=== PATIENT | male | born 1965 | race Hispanic/Latino ===

== ENCOUNTER 2023-01-05 15:27 | Inpatient (IN) | payer OTHER ==
[~2023-01-05] VITALS: Ht 167.6 cm; Wt 76.2 kg
[2023-01-05] MEDS ORDERED: SODIUM CHLORIDE FLUSH 10 ML SYR IV PRN (15:45)
[2023-01-05] MEDS ORDERED: SODIUM CHLORIDE 0.9% 250ML 1,000 ML IV ONE (15:45)
[2023-01-05 16:06] LABS: BASOPHILS % 0.2 % (0.0-1.0); EOSINOPHILS % 0.9 % (0.0-6.0); HEMATOCRIT 43.1 % (38.2-49.6); HEMOGLOBIN 15.1 g/dL (14.0-18.0); LYMPHOCYTES # (AUTO) 1.5 (1.0-3.2); LYMPHOCYTES % 33.6 % (18.0-39.1); MEAN CORPUSCULAR HEMOGLOBIN 31.2 pg (28-32); MONOCYTES # (AUTO) 0.4 (0.2-0.8); MONOCYTES % 9.3 % (4.4-11.3); NEUTROPHILS # (AUTO) 2.5 (2.1-6.9); NEUTROPHILS % 55.8 % (38.7-80.0); PLATELET COUNT 154 x10e3/uL (140-360); RED BLOOD COUNT 4.84 x10e6/uL (4.3-5.7); RED CELL DISTRIBUTION WIDTH 12.4 % (11.7-14.4)
[2023-01-05 16:25] LABS: ALBUMIN 4.2 g/dL (3.5-5.0); ALBUMIN/GLOBULIN RATIO 1.6 (0.8-2.0); CALCIUM 8.7 mg/dL (8.4-10.2); CREATININE, SERUM 1.21 mg/dL (0.72-1.25)
[2023-01-05] MEDS ORDERED: ONDANSETRON HCL INJ 2MG/ML 2ML 2 MG/ML VIAL IV PRN (18:30)
[2023-01-05] MEDS ORDERED: ASPIRIN 325 MG TAB PO ONE (18:30)
[2023-01-05] MEDS ORDERED: SODIUM CHLORIDE FLUSH 10 ML SYR INJ PRN (18:30)
[2023-01-05 18:39] LABS: CREATINE KINASE 100 IU/L (30-200)
[2023-01-05 20:40] VITALS: BP 127/78; PULSE 52; RESP 17; TEMP 97.3; O2SAT 100
[2023-01-05 22:10] VITALS: BP 127/78; PULSE 52; RESP 17; TEMP 97.3; O2SAT 100
[2023-01-05] MEDS ORDERED: ASPIRIN EC81 MG PO (22:13)
[2023-01-05] MEDS ORDERED: CLOPIDOGREL75 MG PO (22:13)
[2023-01-05] MEDS ORDERED: LISINOPRIL2.5 MG PO (22:13)
[2023-01-05] MEDS ORDERED: ATORVASTATIN CA20 MG PO (22:13)
[2023-01-06] VITALS (10 sets, daily range): BP systolic 101–135; BP diastolic 63–86; PULSE 54–84; RESP 16–18; TEMP 97.3–99.1; O2SAT 96–100
[2023-01-06 06:21] LABS: BASOPHILS % 0.5 % (0.0-1.0); EOSINOPHILS # (AUTO) 0.1 (0.0-0.4); EOSINOPHILS % 3.1 % (0.0-6.0); HEMATOCRIT 41.2 % (38.2-49.6); HEMOGLOBIN 14.6 g/dL (14.0-18.0); LYMPHOCYTES # (AUTO) 1.4 (1.0-3.2); LYMPHOCYTES % 32.9 % (18.0-39.1); MEAN CORPUSCULAR HEMOGLOBIN 31.9 pg (28-32); MEAN CORPUSCULAR HGB CONC 35.4 g/dL (31-35); MEAN CORPUSCULAR VOLUME 90.2 fL (81-99); MONOCYTES # (AUTO) 0.4 (0.2-0.8); MONOCYTES % 9.2 % (4.4-11.3); NEUTROPHILS # (AUTO) 2.3 (2.1-6.9); NEUTROPHILS % 54.3 % (38.7-80.0); PLATELET COUNT 141 x10e3/uL (140-360); RED BLOOD COUNT 4.57 x10e6/uL (4.3-5.7); RED CELL DISTRIBUTION WIDTH 12.5 % (11.7-14.4)
[2023-01-06 06:37] LABS: ANION GAP 11.2 mmol/L (8-16); CALCIUM 8.5 mg/dL (8.4-10.2); CREATININE, SERUM 1.01 mg/dL (0.72-1.25); POTASSIUM 4.2 mmol/L (3.5-5.1)
[2023-01-06 07:33] LABS: CREATINE KINASE MB 0.6 ng/mL (0-5.0)
[2023-01-06] MEDS ORDERED: ASPIRIN 325 MG TAB EC PO SCH (09:00)
[2023-01-06] MEDS ORDERED: PNEUMOCOCCAL VACCINE POLYVALENT 23 MCG/0.5 ML VIAL IM SCH (10:00)
[2023-01-06] MEDS: ASPIRIN 81 MG CHEW TAB PO SCH (12:00)
[2023-01-06] MEDS: CLOPIDOGREL BISULFATE 75 MG TAB PO SCH (12:47)
[2023-01-06] MEDS: METOPROLOL SUCCINATE 25 MG TAB XL PO SCH (12:49)
[2023-01-06] MEDS ORDERED: ACETAMINOPHEN 325 MG TAB PO PRN (13:00)
[2023-01-06 14:56] LABS: CREATINE KINASE MB 0.6 ng/mL (0-5.0)
[2023-01-06 17:41] LABS: AMPHETAMINES SCREEN,URINE NEGATIVE (NEGATIVE); BENZODIAZEPINES SCREEN,URINE NEGATIVE (NEGATIVE); PHENCYCLIDINE SCREEN,URINE NEGATIVE (NEGATIVE)
[2023-01-06] MEDS: ENOXAPARIN INJ 80 MG/0.8 ML SYR SC SCH (21:08)
[2023-01-06] MEDS: ATORVASTATIN 40 MG TAB PO SCH (21:08)
[2023-01-07] VITALS (7 sets, daily range): BP systolic 101–127; BP diastolic 57–89; PULSE 62–77; RESP 16–18; TEMP 97.2–98.6; O2SAT 97–100
[2023-01-07 05:22] LABS: BASOPHILS % 0.4 % (0.0-1.0); EOSINOPHILS # (AUTO) 0.2 (0.0-0.4); EOSINOPHILS % 3.5 % (0.0-6.0); HEMATOCRIT 43.1 % (38.2-49.6); LYMPHOCYTES # (AUTO) 1.9 (1.0-3.2); LYMPHOCYTES % 41.6 % (18.0-39.1); MEAN CORPUSCULAR HEMOGLOBIN 31.4 pg (28-32); MEAN CORPUSCULAR HGB CONC 34.8 g/dL (31-35); MEAN CORPUSCULAR VOLUME 90.2 fL (81-99); MONOCYTES # (AUTO) 0.4 (0.2-0.8); MONOCYTES % 9.7 % (4.4-11.3); NEUTROPHILS % 44.6 % (38.7-80.0); PLATELET COUNT 148 x10e3/uL (140-360); RED BLOOD COUNT 4.78 x10e6/uL (4.3-5.7); RED CELL DISTRIBUTION WIDTH 12.5 % (11.7-14.4)
[2023-01-07 05:45] LABS: ALBUMIN 3.6 g/dL (3.5-5.0); ALBUMIN/GLOBULIN RATIO 1.4 (0.8-2.0); ANION GAP 11.1 mmol/L (8-16); CALCIUM 8.4 mg/dL (8.4-10.2); CHOL/HDL RATIO 3.4 (3.9-4.7); CREATININE, SERUM 1.21 mg/dL (0.72-1.25); POTASSIUM 4.1 mmol/L (3.5-5.1)
[2023-01-07 06:11] LABS: THYROID STIMULATING HORMONE 1.442 uIU/mL (0.350-4.940)
[2023-01-07] MEDS: METOPROLOL SUCCINATE 25 MG TAB XL PO SCH (08:36)
[2023-01-07] MEDS: ASPIRIN 81 MG CHEW TAB PO SCH (08:36)
[2023-01-07] MEDS: ENOXAPARIN INJ 80 MG/0.8 ML SYR SC SCH ×2 (08:36→20:43)
[2023-01-07] MEDS: CLOPIDOGREL BISULFATE 75 MG TAB PO SCH (08:36)
[2023-01-07] MEDS: ATORVASTATIN 40 MG TAB PO SCH (20:40)
[2023-01-08] VITALS (17 sets, daily range): BP systolic 99–137; BP diastolic 60–84; PULSE 58–76; RESP 16–19; TEMP 97.5–99.3; O2SAT 96–100
[2023-01-08 04:53] LABS: BASOPHILS % 0.6 % (0.0-1.0); EOSINOPHILS # (AUTO) 0.2 (0.0-0.4); EOSINOPHILS % 3.4 % (0.0-6.0); HEMATOCRIT 42.1 % (38.2-49.6); LYMPHOCYTES % 36.5 % (18.0-39.1); MEAN CORPUSCULAR HGB CONC 35.6 g/dL (31-35); MEAN CORPUSCULAR VOLUME 89.8 fL (81-99); MONOCYTES # (AUTO) 0.4 (0.2-0.8); MONOCYTES % 8.2 % (4.4-11.3); NEUTROPHILS # (AUTO) 2.7 (2.1-6.9); NEUTROPHILS % 51.1 % (38.7-80.0); PLATELET COUNT 151 x10e3/uL (140-360); RED BLOOD COUNT 4.69 x10e6/uL (4.3-5.7); RED CELL DISTRIBUTION WIDTH 12.4 % (11.7-14.4)
[2023-01-08 05:19] LABS: ANION GAP 10.1 mmol/L (8-16); CALCIUM 8.4 mg/dL (8.4-10.2); CREATININE, SERUM 1.11 mg/dL (0.72-1.25); POTASSIUM 4.1 mmol/L (3.5-5.1)
[2023-01-08] MEDS: ASPIRIN 81 MG CHEW TAB PO SCH (09:00)
[2023-01-08] MEDS: CLOPIDOGREL BISULFATE 75 MG TAB PO SCH (09:00)
[2023-01-08] MEDS: ENOXAPARIN INJ 80 MG/0.8 ML SYR SC SCH (09:00)
[2023-01-08] MEDS: METOPROLOL SUCCINATE 25 MG TAB XL PO SCH (09:00)
[2023-01-08] MEDS ORDERED: SODIUM CHLORIDE 0.9% 1000ML 1,000 ML IV SCH (11:30)
[2023-01-08] MEDS ORDERED: HEPARIN SOD (PORCINE) 1000 UNIT/ML 30ML ONE (12:05)
[2023-01-08] MEDS ORDERED: LIDOCAINE HCL 2% LOCAL 20 ML VIAL ONE (12:05)
[2023-01-08] MEDS ORDERED: SODIUM CHLORIDE 0.9% 1000ML 1,000 ML ONE (12:06)
[2023-01-08] MEDS ORDERED: HEPARIN SOD/SOD CHLORIDE 2,000 ML ONE (12:06)
[2023-01-08] MEDS ORDERED: IOPAMIDOL 370 MG/ML 100 ML INFUS..BTL INJ ONE (12:06)
[2023-01-08] MEDS ORDERED: FENTANYL CITRATE/PF 100MCG/2 ML INJ ONE (12:12)
[2023-01-08] MEDS ORDERED: MIDAZOLAM HCL 2 MG/2 ML VIAL ONE (12:12)
[2023-01-08] MEDS ORDERED: VERAPAMIL HCL 2.5 MG/ML 2 ML VIAL ONE (12:12)
[2023-01-08] MEDS ORDERED: TOPROL XL25 MG PO (18:15)
== END 2023-01-08 18:50 | disposition home or self-care (01) | DRG 287 ==
LOC: ER 15:46 → ERHOLD 18:19 → INTOOBSV 18:19 → MED/SURG 20:26 → OBSVTOIN 01-08 10:51
PROVIDERS: ADMIT Internal Medicine; ATTEND Internal Medicine
PROC: 4A023N7 Measurement of Cardiac Sampling and Pressure, Left Heart, Percutaneous Approach (ICD-10-PCS; principal; 2023-01-08)
PROC: B2111ZZ Fluoroscopy of Multiple Coronary Arteries using Low Osmolar Contrast (ICD-10-PCS; 2023-01-08)
DX: I25.110 Atherosclerotic heart disease of native coronary artery with unstable angina pectoris (principal); I10 Essential (primary) hypertension; E78.5 Hyperlipidemia, unspecified; Z95.5 Presence of coronary angioplasty implant and graft
CPT/HCPCS: 0223U; 36415; 71045; 76937; 80048; 80053; 80061; 80307; 82550; 82553; 82948; 83036; 84443; 84484; 85025; 93306; 93458; 99152; 99284; C1887; G0378; J1644; J1650; J2001; J2250; J7030; Q9967